=== PATIENT | male | born 2005 | race Caucasian/White ===

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

== ENCOUNTER 2023-02-20 16:45 | Emergency (ER) | payer OTHER ==
[~2023-02-20] VITALS: Ht 177.8 cm; Wt 82.0 kg
[2023-02-20 16:46] VITALS: BP 139/80; TEMP 96.7; O2SAT 98
== END 2023-02-20 20:19 | disposition left against medical advice (07) ==
LOC: M ED 16:45
DX: R11.0 Nausea (principal); Z53.21 Procedure and treatment not carried out due to patient leaving prior to being seen by health care provider

== ENCOUNTER 2023-07-12 18:53 | Emergency (ER) | payer OTHER ==
[~2023-07-12] VITALS: Ht 172.7 cm; Wt 79.8 kg
[2023-07-12 18:54] VITALS: BP 125/76; TEMP 97.7; O2SAT 95
== END 2023-07-12 20:36 | disposition left against medical advice (07) ==
LOC: M ED 18:53
DX: Z53.21 Procedure and treatment not carried out due to patient leaving prior to being seen by health care provider (principal)

== ENCOUNTER 2024-01-25 00:05 | Emergency (ER) | payer MEDICARE, MEDICAID ==
[~2024-01-25] VITALS: Ht 185.4 cm; Wt 82.0 kg
[2024-01-25 07:51] VITALS: BP 140/66; TEMP 98.3; O2SAT 96
== END 2024-01-25 07:57 | disposition home or self-care (01) ==
LOC: M ED 00:05
DX: S93.402A Sprain of unspecified ligament of left ankle, initial encounter (principal); W20.8XXA Other cause of strike by thrown, projected or falling object, initial encounter; Y92.009 Unspecified place in unspecified non-institutional (private) residence as the place of occurrence of the external cause; Y93.9 Activity, unspecified; Y99.9 Unspecified external cause status; F84.0 Autistic disorder; F41.9 Anxiety disorder, unspecified; F32.9 Major depressive disorder, single episode, unspecified; F90.9 Attention-deficit hyperactivity disorder, unspecified type; F81.9 Developmental disorder of scholastic skills, unspecified; Z79.899 Other long term (current) drug therapy; Z88.8 Allergy status to other drugs, medicaments and biological substances

== ENCOUNTER → 2024-07-23 | Outpatient (CLI) | payer MEDICARE, MEDICAID | LOC: M PLAIMG 11:39 | PROVIDERS: ATTEND Nurse Practitioner Family | DX: R06.00 Dyspnea, unspecified (principal) ==

== ENCOUNTER 2024-08-01 01:03 | Inpatient (IN) | payer MEDICARE, MEDICAID ==
[~2024-08-01] VITALS: Ht 180.3 cm; Wt 84.2 kg
[2024-08-01] MEDS ORDERED: CLON0.2T PO (01:07)
[2024-08-01] MEDS ORDERED: ARIP1TAB4 PO (01:07)
[2024-08-01] MEDS: NS (Normal Saline) 0.9% 1,000 ML IV ONE (01:25)
[2024-08-01 01:31] LABS: BASO # 0.1 10^3/uL (0.0-0.2); BASO % 0.9 % (0.0-1.0); EOS # 0.1 10^3/uL (0.0-0.5); EOS % 1.6 % (0.0-3.0); HEMATOCRIT 46.7 % (42.0-52.0); HEMOGLOBIN 16.4 g/dl (13.5-17.5); LYMPH % 26.8 % (24.0-44.0); MEAN CORPUSCULAR HEMOGLOBIN 29.2 pg (27.0-33.0); MEAN CORPUSCULAR HGB CONC 35.1 g/dl (32.0-36.5); MEAN CORPUSCULAR VOLUME 83.1 fl (80.0-96.0); MONO # 0.7 10^3/uL (0.0-0.8); MONO % 9.5 % (2.0-8.0); NEUTROPHILS # 4.6 10^3/uL (1.5-8.5); NEUTROPHILS % 60.9 % (36.0-66.0); PLATELET COUNT, AUTOMATED 312 10^3/uL (150-450); RED BLOOD COUNT 5.62 10^6/uL (4.30-6.10); WHITE BLOOD COUNT 7.6 10^3/uL (4.0-10.0)
[2024-08-01 01:54] LABS: ETHYL ALCOHOL (ETHANOL) < 0.003 % (0.000-0.010)
[2024-08-01 01:55] LABS: SALICYLATE LEVEL < 3.0 MG/DL (<30)
[2024-08-01 01:56] LABS: ALBUMIN 4.1 G/DL (3.2-5.2); ALKALINE PHOSPHATASE 83 U/L (40-129); ALT/SGPT 25 U/L (7.0-40); AST/SGOT 18 U/L (<34); BILIRUBIN,DIRECT 0.3 MG/DL (<0.4); BILIRUBIN,TOTAL 0.8 MG/DL (0.3-1.2); BLOOD UREA NITROGEN 10 MG/DL (9-23); CALCIUM LEVEL 10.2 MG/DL (8.5-10.1); CARBON DIOXIDE LEVEL 24 MMOL/L (20-31); CHLORIDE LEVEL 107 MMOL/L (98-107); CREATININE FOR GFR 0.81 MG/DL (0.70-1.30); GLOMERULAR FILTRATION RATE > 60.0 (>60); GLUCOSE, FASTING 134 MG/DL (60-100); POTASSIUM SERUM 3.9 MMOL/L (3.5-5.1); SODIUM LEVEL 140 MMOL/L (136-145); TOTAL PROTEIN 7.5 G/DL (5.7-8.2)
[2024-08-01 02:18] LABS: THYROID STIMULATING HORMONE 1.087 uIU/ML (0.55-4.78)
[2024-08-01 02:27] LABS: CPK CREATINE PHOSPHOKINASE 115 U/L (46-171)
[2024-08-01 10:33] LABS: AMPHETAMINES LEVEL URINE NEGATIVE (NEGATIVE); BARBITURATES URINE NEGATIVE (NEGATIVE); BENZODIAZEPINES URINE NEGATIVE (NEGATIVE); CANNABINOIDS URINE NEGATIVE (NEGATIVE); COCAINE METABOLITE URINE NEGATIVE (NEGATIVE); METHADONE URINE NEGATIVE (NEGATIVE); OPIATES URINE NEGATIVE (NEGATIVE); PHENCYCLIDINE URINE NEGATIVE (NEGATIVE)
[2024-08-01] MEDS ORDERED: KETO2CR TOP (14:19)
[2024-08-01] MEDS ORDERED: FAMO20TA PO (14:19)
[2024-08-01] MEDS ORDERED: VITA200020 PO (14:19)
[2024-08-01] MEDS ORDERED: VENTAER INH (14:19)
[2024-08-01] MEDS ORDERED: BENZ0.5T2 PO (14:19)
[2024-08-01] MEDS ORDERED: CLAR10CA3 PO (14:19)
[2024-08-01] MEDS ORDERED: TRAZ-252 PO (14:19)
[2024-08-01] MEDS ORDERED: SERT-141 PO (14:19)
[2024-08-01] MEDS ORDERED: HOME MED LIST COMPLETE! XX SCH (14:20)
[2024-08-01] MEDS ORDERED: traZODone 50 MG TAB PO PRN (19:30)
[2024-08-01] MEDS ORDERED: OLANZapine ORAL DISINTEGRATING TAB 5MG PO PRN (19:30)
[2024-08-01] MEDS ORDERED: MOM 30ML SUSPENSION UDC PO PRN (19:30)
[2024-08-01 21:59] VITALS: BP 115/59; TEMP 96.9; O2SAT 100
[2024-08-02] MEDS: ALBUTEROL 90 MCG/ACT 8GM HFA INHALER INH PRN (01:27)
[2024-08-02 06:40] VITALS: BP 136/55; TEMP 98.7; O2SAT 98
[2024-08-02] MEDS: NICOTINE 14 MG/24 HR TRANSDERMAL TD SCH (09:00)
[2024-08-02] MEDS: SERTRALINE HCL 50 MG TAB PO SCH (09:53)
[2024-08-02] MEDS: ARIPiprazole 2 MG TAB PO SCH (09:53)
[2024-08-02] MEDS: cloNIDine 0.2 MG TAB PO SCH (09:55)
[2024-08-02 09:57] VITALS: BP 141/62
[2024-08-02] MEDS: IBUPROFEN 400MG TAB PO PRN (13:27)
[2024-08-02] MEDS: LORATADINE 10 MG TAB PO SCH (14:52)
[2024-08-02] MEDS: FAMOTIDINE 20 MG TAB PO SCH (14:53)
[2024-08-02 16:38] VITALS: BP 143/63; TEMP 97.1; O2SAT 98
[2024-08-02] MEDS: traZODone 50 MG TAB PO SCH (20:54)
[2024-08-02] MEDS: BENZTROPINE 0.5 MG TAB PO SCH (20:54)
[2024-08-03 06:59] VITALS: BP 126/72; TEMP 97.5; O2SAT 98
[2024-08-03] MEDS: ACETAMINOPHEN 325 MG TAB PO PRN (14:10)
[2024-08-03 17:17] VITALS: BP 135/63; TEMP 97.5; O2SAT 98
[2024-08-03] MEDS: cloNIDine 0.2 MG TAB PO SCH (20:38)
[2024-08-04 06:36] VITALS: BP 124/74; TEMP 98; O2SAT 97
[2024-08-04 15:24] VITALS: BP 136/78; TEMP 97.9; O2SAT 98
[2024-08-04] MEDS: SERTRALINE HCL 50 MG TAB PO SCH (20:24)
[2024-08-04] MEDS: ARIPiprazole 2 MG TAB PO SCH (20:24)
[2024-08-04] MEDS: BENZTROPINE 0.5 MG TAB PO SCH (20:24)
[2024-08-04] MEDS ORDERED: BENZTROPINE 0.5 MG TAB PO SCH (21:00)
[2024-08-05 06:46] VITALS: BP 132/60; TEMP 97.5; O2SAT 98
[2024-08-05 15:48] VITALS: BP 138/66; TEMP 98.7; O2SAT 98
[2024-08-06 06:26] VITALS: BP 134/88; TEMP 97.5; O2SAT 97
[2024-08-06 15:26] VITALS: BP 164/70; TEMP 97.7; O2SAT 98
[2024-08-07 06:38] VITALS: BP 118/63; TEMP 97.6; O2SAT 98
[2024-08-07] MEDS: PILL CUTTER 1 EACH XX PRN (08:19)
[2024-08-07 15:58] VITALS: BP 144/73; TEMP 98.2; O2SAT 98
[2024-08-07 20:23] VITALS: BP 152/88
[2024-08-08 05:00] VITALS: BP 126/65; TEMP 97.6; O2SAT 100
[2024-08-08 16:45] VITALS: BP 140/80; TEMP 97.5; O2SAT 99
[2024-08-08] MEDS: MAALOX 30 ML SUSP *UDC PO PRN (18:20)
[2024-08-08 20:03] VITALS: BP 140/74
[2024-08-09 06:25] VITALS: BP 130/63; TEMP 97.4; O2SAT 97
[2024-08-09] MEDS ORDERED: ABIL1TAB11 PO (12:57)
== END 2024-08-09 15:18 | disposition home or self-care (01) | DRG 881 ==
LOC: M ED 01:03 → M ED INP 19:28 → M PSY 21:54
PROVIDERS: ADMIT Psychiatry & Neurology Neurology; ATTEND Psychiatry & Neurology Psychiatry
DX: F32.A Depression, unspecified (principal); R45.851 Suicidal ideations; J45.909 Unspecified asthma, uncomplicated; K21.9 Gastro-esophageal reflux disease without esophagitis; Z79.899 Other long term (current) drug therapy; Z88.8 Allergy status to other drugs, medicaments and biological substances; Z91.51 Personal history of suicidal behavior

== ENCOUNTER → 2024-09-17 | Outpatient (REF) | payer MEDICARE, MEDICAID ==
[~2024-09-17] MED LIST changes: +ABIL1TAB11 PO; +ARIP1TAB4 PO; +BENZ0.5T2 PO; +CLAR10CA3 PO; +FAMO20TA PO; +KETO2CR TOP; +SERT-141 PO; +VENTAER INH; +VITA200020 PO
[2024-09-17 18:26] LABS: ALKALINE PHOSPHATASE 68 U/L (40-129); ALT/SGPT 26 U/L (7.0-40); AST/SGOT 16 U/L (<34); BILIRUBIN,TOTAL 0.6 MG/DL (0.3-1.2); BLOOD UREA NITROGEN 12 MG/DL (9-23); CALCIUM LEVEL 9.5 MG/DL (8.5-10.1); CARBON DIOXIDE LEVEL 28 MMOL/L (20-31); CHLORIDE LEVEL 105 MMOL/L (98-107); CHOLESTEROL LEVEL 143 MG/DL (<200); CHOLESTEROL RISK RATIO 3.42 (<5); CREATININE FOR GFR 0.94 MG/DL (0.70-1.30); GLOMERULAR FILTRATION RATE > 60.0 (>60); GLUCOSE, FASTING 96 MG/DL (60-100); HDL CHOLESTEROL 41.7 MG/DL (>40); LDL CHOLESTEROL 87.3 MG/DL (<100); MAGNESIUM LEVEL 1.9 MG/DL (1.8-2.4); NON-HDL-C 101.3 MG/DL; POTASSIUM SERUM 4.4 MMOL/L (3.5-5.1); SODIUM LEVEL 141 MMOL/L (136-145); TOTAL PROTEIN 7.1 G/DL (5.7-8.2); TRIGLYCERIDES LEVEL 70 MG/DL (<150)
[2024-09-17 18:28] LABS: TOTAL 25(OH) VITAMIN D 34.1 NG/ML (20.0-100.0)
[2024-09-17 18:29] LABS: BASO # 0.1 10^3/uL (0.0-0.2); BASO % 1.2 % (0.0-1.0); EOS # 0.1 10^3/uL (0.0-0.5); EOS % 1.8 % (0.0-3.0); HEMATOCRIT 46.8 % (42.0-52.0); HEMOGLOBIN 15.7 g/dl (13.5-17.5); LYMPH # 2.5 10^3/uL (1.5-5.0); LYMPH % 37.2 % (24.0-44.0); MEAN CORPUSCULAR HEMOGLOBIN 28.4 pg (27.0-33.0); MEAN CORPUSCULAR HGB CONC 33.5 g/dl (32.0-36.5); MEAN CORPUSCULAR VOLUME 84.8 fl (80.0-96.0); MONO # 0.5 10^3/uL (0.0-0.8); MONO % 8.2 % (2.0-8.0); NEUTROPHILS # 3.4 10^3/uL (1.5-8.5); NEUTROPHILS % 51.3 % (36.0-66.0); PLATELET COUNT, AUTOMATED 290 10^3/uL (150-450); RED BLOOD COUNT 5.52 10^6/uL (4.30-6.10); WHITE BLOOD COUNT 6.6 10^3/uL (4.0-10.0)
[2024-09-17 18:51] LABS: HEMOGLOBIN A1c 5.2 % (4.0-6.0)
== END ==
LOC: M LAB REF 17:12
PROVIDERS: ATTEND Nurse Practitioner Family
DX: E66.3 Overweight (principal); E55.9 Vitamin D deficiency, unspecified; Z79.899 Other long term (current) drug therapy

== ENCOUNTER 2025-03-05 21:07 | Emergency (ER) | payer MEDICARE, MEDICAID ==
[~2025-03-05] VITALS: Ht 180.3 cm; Wt 82.9 kg
[2025-03-05 22:47] VITALS: BP 143/73; TEMP 98.5; O2SAT 99
== END 2025-03-05 23:04 | disposition left against medical advice (07) ==
LOC: M ED 21:07
DX: Z53.21 Procedure and treatment not carried out due to patient leaving prior to being seen by health care provider (principal)

== ENCOUNTER 2025-05-24 23:29 | Emergency (ER) | payer MEDICARE, MEDICAID ==
[~2025-05-24] VITALS: Ht 175.3 cm; Wt 76.8 kg
[2025-05-24 23:31] VITALS: BP 144/63; TEMP 96.8; O2SAT 97
== END 2025-05-25 02:16 | disposition left against medical advice (07) ==
LOC: M ED 23:29
DX: Z53.21 Procedure and treatment not carried out due to patient leaving prior to being seen by health care provider (principal)